=== PATIENT | female | born 1950 | race Caucasian/White ===

== ENCOUNTER 2017-08-16 15:24 | Emergency (ER) | payer MEDICARE ==
--- OUTSIDE RECORDS SUMMARY | 2017-08-16 16:21 | XMS REPORT ---
:1950 External Reference #:[id number] Author Organization [facility] Address [address] [place] [id number] Phone [phone] Care Team Providers Name Role Phone Jenni Alfaro O.D. Care Team Information Transport Company Manager Unavailable Payers Type Date Identification Numbers Payment Provider Subscriber Medicare Primary Policy Number: [id number] Medicare - NGS Radha Solis PayID: [id number] [address] [place] [address] Problems Date Description Provider Status Onset: 08/16/2017 Third [oculomotor] nerve palsy, right Edward Ramirez M.D. Active eye Family History Date Family Member(s) Problem(s) Comments General No Current Problems Father Kidney Disease Mother Hypertension Social History Type Date Description Comments Marital Status Legal Status: Occupation Merchandising Director Work Status Retired ETOH Use Rarely consumes alcohol Smoking Patient has never smoked Recreational Drug Use Denies Drug Use Daily Caffeine Consumes on average 2 cups of regular coffee per day Allergies, Adverse Reactions, Alerts Date Description Reaction Status Severity Comments 08/16/2017 NKDA active Medications Medication Date Status Form Strength Qnty SIG Indications Ordering Provider Vitamin D Active Capsules 5000Unit Unknown (Cholecalciferol) 0 Probiotic Active Capsules Unknown 0 Vitamin K2 Active Capsules 100mcg Unknown 0 Pregnenolone Active 10mg Unknown 0 Vitamin K1 Active Unknown 0 Joint Support Active Capsules Unknown 0 Results Description No Information Procedures Description No Information Plan of Care 08/16/2017 - Edward Ramirez M.D.H49.01 Third [oculomotor] nerve palsy, right eyeComments:Smoking can increase the risk of developing or worsening any eye related disease, as well as affect your overall health. If you are a smoker, we strongly recommend that you quit.If you are not a smoker, we strongly recommend that you do not start. YOU HAVE A THIRD NERVE PALSY ON THE RIGHT SIDE. I RECOMMEND YOU GO TO THE EMERGENCY DEPARTMENT FOR NEUROLOGIC IMAGING TO LOOK FOR A CAUSE.Follow up:2WEEKS 3RD NERVE FOLLOW UP
[2017-08-16] MEDS ORDERED: cloNIDine TAB* 0.1 MG PO ONE (16:42)
[2017-08-16 17:12] LABS: Hematocrit 50 % (35-47); Hemoglobin 16.8 g/dl (12.0-16.0); Mean Corpuscular HGB Conc 34 g/dl (31-36); Mean Corpuscular Hemoglobin 30 pg (27-31); Mean Corpuscular Volume 89 fL (80-97); Mean Platelet Volume 8 um3 (7.4-10.4); Platelet Count 223 10^3/ul (150-450); Red Blood Count 5.61 10^6/ul (4.0-5.4); Red Cell Distribution Width 14 % (10.5-15); White Blood Count 9.1 10^3/ul (3.5-10.8)
--- NOTE | 2017-08-16 17:15 | RAD ---
Indication: Hypertension with visual disturbances. CT of the brain was performed without IV contrast. Ventricular structures are midline. No midline shift is noted. The extra-axial spaces are unremarkable. Periventricular lucency consistent with chronic ischemic White matter change is noted. There is no evidence of intracranial mass or hemorrhage. No other high or low density lesions are identified. Mastoid air cells and paranasal sinuses are otherwise unremarkable. IMPRESSION: CHRONIC ISCHEMIC WHITE MATTER CHANGE. NO INTRACRANIAL MASS OR HEMORRHAGE IS NOTED.
--- NOTE | 2017-08-16 17:17 | RAD ---
Indication: Evaluate for dissection. Single frontal view of the chest performed at 1654 hours was reviewed. No other prior study is available for comparison. No mediastinal shift is noted. Heart is of normal size and configuration. Lung chisholm appear clear. IMPRESSION: NO ACTIVE CARDIOPULMONARY DISEASE IS NOTED.
[2017-08-16 17:27] LABS: EGFR Non-African American 61.3 (>60)
[2017-08-16] MEDS ORDERED: Iohexol 350* (CONTRAST) 500 ML MDV IV ONE (18:45)
--- NOTE | 2017-08-16 19:43 | RAD ---
Indication: 3rd nerve palsy. Contrast: Administered 80.0 ml of OMNIPAQUE 350 mg/ml CTA of the neck and head was performed after IV contrast administration. Coronal and sagittal reconstructed images were obtained. The origins of the great vessels are unremarkable. The common carotid arteries bilaterally demonstrates no significant stenosis. Internal carotid arteries bilaterally demonstrates no significant stenosis or plaque. No evidence of carotid artery dissection is noted. The vertebral arteries are patent. The appear to be fairly symmetric in size. Intracranial circulation demonstrates intracranial carotid arteries to be unremarkable. Anterior and middle cerebral arteries are unremarkable. Basilar artery and vertebral arteries are patent. Posterior cerebral arteries are unremarkable. There is a patent left posterior communicating artery. No aneurysmal dilatation is identified. No branch occlusion is noted. The soft tissues of neck are unremarkable. Submandibular glands are unremarkable. Lung apices are unremarkable. IMPRESSION: No evidence of aneurysmal dilatation. No branch occlusion is noted.
[2017-08-16 20:40] LABS: Urine Appearance Cloudy; Urine Blood 1+ (Negative); Urine Color Yellow; Urine Ketones Trace (Negative); Urine Protein Negative (Negative); Urine Specific Gravity 1.029 (1.010-1.030); Urine Urobilinogen Negative (Negative)
[2017-08-16 20:41] VITALS: BP 231/165
--- NOTE | 2017-08-19 08:44 | PN ---
Progress Note - Progress Note Date of Service: 08/16/17 Note: Urine culture grew E. Coli Patient was not placed on antibiotics prior to discharge Urine culture final shows sensitivities to Macrobid Patient is called and given this information, states must be gel cap Pharmacy called and Macrobid is a gel cap Nothing further at this time. Orin Tsai PA-C
== END 2017-08-16 20:41 | disposition left against medical advice (07) ==
LOC: ED 15:24
DX: R51 Headache (principal); H53.8 Other visual disturbances; Z86.79 Personal history of other diseases of the circulatory system
CPT/HCPCS: 36415; 70450; 70496; 70498; 71045; 80053; 81003; 81015; 83735; 84443; 84484; 85027; 87077; 87086; 87186; 93005; 99283; Q9967

== ENCOUNTER 2017-10-12 11:17 | Emergency (ER) | payer MEDICARE ==
[2017-10-12 12:02] VITALS: BP 0/0
--- NOTE | 2017-10-12 14:39 | UC ---
Complaint Female HPI - HPI Summary HPI Summary: Patient was diagnosed with the UTI 2 months ago. States she completed a course of nitrofurantoin but did not feel that her symptoms ever fully resolved. She has persistent urinary frequency and urgency. Only very slight occasional dysuria. No fever or back pain or nausea. She has been trying holistic remedies and naturOpathic medicine with no improvement in her symptoms. Is here today for evaluation for more definitive treatment. - History Of Current Complaint Chief Complaint: UCGU Stated Complaint: URINARY COMPLAINT Time Seen by Provider: 10/12/17 12:16 Hx Obtained From: Patient Onset/Duration: Gradual Onset, Lasting Weeks, Still Present Severity Initially: Moderate Severity Currently: Moderate Pain Intensity: 0 Pain Scale Used: 0-10 Numeric Character: Not Applicable Aggravating Factor(s): Nothing Alleviating Factor(s): Nothing Associated Signs And Symptoms: Negative: Fever, Back Pain, Vaginal Discharge, Nausea - Allergies/Home Medications Allergies/Adverse Reactions: Allergies Allergy/AdvReac Type Severity Reaction Status Date / Time No Known Allergies Allergy Verified 10/12/17 12:02 PMH/Surg Hx/FS Hx/Imm Hx Previously Healthy: Yes - Surgical History Surgical History: Yes Surgery Procedure, Year, and Place: GB - Family History Known Family History: Negative: Hypertension - Social History Alcohol Use: None Substance Use Type: None Smoking Status (MU): Never Smoked Tobacco - Immunization History Most Recent Tetanus Shot: no Review of Systems Constitutional: Negative Respiratory: Negative Cardiovascular: Negative Gastrointestinal: Negative Genitourinary: Frequency All Other Systems Reviewed And Are Negative: Yes Physical Exam Triage Information Reviewed: Yes Appearance: Well-Appearing, No Pain Distress, Well-Nourished Vital Signs: Initial Vital Signs Temp 98.6 F 10/12/17 11:57 Pulse 104 10/12/17 11:57 Resp 20 10/12/17 11:57 BP 0/0 10/12/17 11:57 Pulse Ox 98 10/12/17 11:57 Vital Signs Reviewed: Yes Eyes: Positive: Conjunctiva Clear ENT: Positive: Hearing grossly normal Neck: Positive: Supple Respiratory: Positive: No respiratory distress, No accessory muscle use Cardiovascular: Positive: Pulses Normal Abdomen Description: Positive: Nontender, Soft. Negative: CVA Tenderness (R), CVA Tenderness (L), Distended, Guarding Musculoskeletal: Positive: No Edema Neurological: Positive: Alert Psychological: Positive: Age Appropriate Behavior Skin: Negative: rashes Diagnostics - Laboratory Diagnostic Studies Completed/Ordered: URINE DIP SP. GR. 1.015, 2+ PROTEIN, 2+ LEUKS, 1+ BLOOD Complaint Female Dx - Differential Dx/Diagnosis Provider Diagnoses: UTI Discharge - Sign-Out/Discharge Documenting (check all that apply): Discharge - Discharge Plan Condition: Stable Disposition: HOME Prescriptions: Sulfamethox/Trimethoprim DS* [Bactrim DS 800/160 TAB*] 1 tab PO BID #14 tab Patient Education Materials: Urinary Tract Infection in Women (ED) Referrals: No Primary Care Phys,NOPCP [Primary Care Provider] - Additional Instructions: CALL THE NUMBER BELOW FOR ASSISTANCE IN ESTABLISHING WITH A PCP An additional resource available to assist in finding the appropriate physician for your health care needs is the [facility] ([facility]). You may contact them by calling [phone]. - Billing Disposition and Condition Condition: STABLE Disposition: HOME
--- NOTE | 2017-10-13 16:36 | UC ---
- Progress Note Progress Note: patient has hematuria on her urine dip and did not grow out bacteria to equal an infection. Call patient and assure she has arranged follow up visit. May stop antibiodics Discharge - Sign-Out/Discharge Documenting (check all that apply): Discharge - Discharge Plan Condition: Stable Disposition: HOME Prescriptions: Sulfamethox/Trimethoprim DS* [Bactrim DS 800/160 TAB*] 1 tab PO BID #14 tab Patient Education Materials: Urinary Tract Infection in Women (ED) Referrals: No Primary Care Phys,NOPCP [Primary Care Provider] - Additional Instructions: CALL THE NUMBER BELOW FOR ASSISTANCE IN ESTABLISHING WITH A PCP An additional resource available to assist in finding the appropriate physician for your health care needs is the [facility] ([facility]). You may contact them by calling [phone]. - Billing Disposition and Condition Condition: STABLE Disposition: HOME
== END 2017-10-12 12:50 | disposition home or self-care (01) ==
LOC: UCEAST 11:17
DX: N39.0 Urinary tract infection, site not specified (principal); B96.20 Unspecified Escherichia coli [E. coli] as the cause of diseases classified elsewhere
CPT/HCPCS: 81003; 87077; 87086; 87186; 99212; G0463